=== PATIENT | female | born 1960 | race Caucasian/White ===

== ENCOUNTER 2016-09-26 20:53 | Emergency (ER) | payer SELFPAY ==
[2016-09-26 21:02] VITALS: RESP 18; TEMP 98.1
[2016-09-26] MEDS ORDERED: NORMAL SALINE 10 ML SYRINGE FLUSH IVP PRN (21:04)
[2016-09-26] MEDS ORDERED: Sodium Chloride 0.9% 1,000 ML PRIMARY IV ONE (21:04)
[2016-09-26] MEDS ORDERED: Pantoprazole Inj 40 MG in Normal Saline Flush 10 ML IVP ONE (21:06)
[2016-09-26 21:33] LABS: BASOPHILS # (AUTO) 0.07 10*3/UL; BASOPHILS % (AUTO) 0.8 % (0-1); EOSINOPHILS # (AUTO) 0.22 10*3/UL; EOSINOPHILS % (AUTO) 2.6 % (0-8); HEMATOCRIT 41.5 % (37.0-47.0); HEMOGLOBIN 13.8 g/dL (12.0-16.0); LYMPHOCYTES # (AUTO) 2.88 10*3/uL; MEAN CORPUSCULAR HEMOGLOBIN 29.7 PG (27-31); MEAN CORPUSCULAR HGB CONC 33.3 g/dL (33-37); MEAN PLATELET VOLUME 10.9 FL (7.4-12.2); MONOCYTES # (AUTO) 0.72 10*3/UL (0.3-0.8); MONOCYTES % (AUTO) 8.5 % (5-15); NEUTROPHILS # (AUTO) 4.55 10*3/UL; NEUTROPHILS % (AUTO) 53.9 % (50-80); PLATELET MORPHOLOGY COMMENT NORMAL MORPHOLOGY (NORM); RBC MORPHOLOGY COMMENT NORMAL MORPHOLOGY (NORM); RED BLOOD COUNT 4.64 10^6/uL (4.20-5.40); WBC MORPHOLOGY COMMENT NORMAL MORPHOLOGY (NORM)
[2016-09-26 21:44] LABS: BLOOD UREA NITROGEN 18 mg/dL (7-22); C-REACTIVE PROTEIN 0.6 mg/dL (0.0-0.9); EST GLOMERULAR FILTRATION > 60 (>60 ml/min/1.73m(2)); LIPASE 68 IU/L (23-300); SERUM ALBUMIN 4.4 g/dL (3.5-4.8)
--- NOTE | 2016-09-26 23:27 | DI ---
HISTORY: Abdominal pain. COMPARISON: None. TECHNIQUE: Anon-contrast CT of the abdomen and pelvis was performed. Images were presented in the ax ial, coronal and sagittal plane. FINDINGS: LUNG BASES: Mild scar is seen within the lung bases. LIVER: Normal in size and attenuation with no focal abnormalities. GALLBLADDER AND BILE DUCTS: Gallbladder is mildly dilated without calcified cholelithiasis. The commo n bile duct is not dilated. Incidental note is made of small duodenal diverticulum. SPLEEN: Normal in size and attenuation with no focal abnormalities. PANCREAS: Normal in size and attenuation with no focal abnormalities. ADRENALS: Normal in size and attenuation with no focal abnormalities. : There is excreted contrast within both renal collecting systems without hydronephrosis or mass. T here is excreted contrast within the urinary bladder. This is likely secondary to prior IV contrast s tudy. GI: No evidence of bowel obstruction or focal inflammation. No focal bowel wall thickening. Status post appendectomy. PELVIS: Within normal limits with no mass identified. Status post hysterectomy. BONES: No acute bony abnormality. No suspicious osteolytic or osteoblastic lesion. SOFT TISSUES: Unremarkable. IMPRESSION: 1. There is mild dilation of the gallbladder without calcified cholelithiasis.
--- NOTE | 2016-09-26 23:29 | PDOC ---
Abdomen/Flank HPI - General Chief Complaint: Genitourinary Complaint Stated Complaint: LOWER BACK PAIN GOING TO RIGHT SIDE Date Seen by Provider: 09/26/16 Time Seen by Provider: 23:00 Source: POSITIVE: Patient Exam Limitations: POSITIVE: No limitations Nurse's Notes Reviewed & Considered: Yes - History of Present Illness Initial Comments: The patient is a 56-year-old female who presents to the emergency room with abdominal pain and back pain. She states that she has been having some issues with some pain across her lower back. This evening while lying in bed she states that her pain radiated higher upper back and then is now across her upper abdomen. She thought that maybe she was having problems with an ulcer and took some Tums, ibuprofen and a couple glasses of milk. This seemed to make the pain worse across her upper abdomen. She has associated nausea however has not had any vomiting. She denies any recent change in bowel movements, fevers or chills, urinary symptoms or any other associated symptoms. She has had previous hysterectomy. - Patient Home Medications Home Medications: Home Medications Ibuprofen [Advil] 200 mg PO Q4H PRN 09/26/16 Omeprazole 20 mg PO DAILY #30 cap 09/26/16 - Patient Allergies Allergies/Adverse Reactions: Allergies Allergy/AdvReac Type Severity Reaction Status Date / Time cephalexin monohydrate Allergy Severe rash and Verified 09/26/16 20:56 [From Keflex] swelling hayfever Allergy Mild NOT Uncoded 10/12/15 12:02 APPLICABLE Past Medical History - heen HEENT History: Denies History Cardiovascular History: Denies History Respiratory History: Denies History Gastrointestinal History: Denies History Genitourinary History: Denies History Endocrine History: Denies History Musculoskeletal History: Denies History Prosthesis or Implant: No Neurological History: Denies History Blood Disorders: Denies History Psychiatric History: Denies History History of Sexually Transmitted Diseases: No Female Reproductive History: Denies History Obstetrical History: Denies History Cancer History: Denies History In Past Year Been Physically Harmed or Verbally Threatened: No History of MDRO: No History of Other Communicable Diseases: No Tobacco Use: Current Every Day Smoker Alcohol Use: None Substance Use Type: None Previous Surgical History: Yes Type / Date of Surgery: hyst Anesthesia Reactions: No Malignant Hyperthermia: No Significant Family History: No pertinent family hx Past Medical History Reviewed: Reviewed - No Changes ROS - Limitations ROS Limitations: No Limitations Constitution: REPORTS: Denies Symptoms Cardiovascular: REPORTS: Denies Cardiac Symptoms Respiratory: REPORTS: Denies Resp Symptoms. DENIES: Hurts To Breathe, Shortness Of Breath Neurological: REPORTS: Denies Neuro Symptoms Gastrointestinal: REPORTS: Abdominal Pain, Nausea. DENIES: Vomitting, Diarrhea Musculoskeletal: REPORTS: Denies MS Symptoms Genitourinary: REPORTS: Denies Symptoms Eyes: REPORTS: Denies Symptoms ENT: REPORTS: Denies Symptoms Skin: DENIES: Rash Abdominal/Flank Pain PE - General Appearance General Appearance: POSITIVE: Alert, Cooperative, No Acute Distress - HEENT HEENT: POSITIVE: Head Inspection Nml, Eyes Inspection Nml, Ears Inspection Nml, Nose Inspection Nml, Pharynx Inspect. Nml, PERRL, EOMI - Neck Neck: POSITIVE: Normal Inspection. NEGATIVE: Lymphadenopathy - Respiratory Respiratory: POSITIVE: No Respiratory Distress, Breath Sounds Normal - Cardiovascular Cardiovascular: POSITIVE: Regular Rate and Rhythm, Heart Sounds Normal - Abdomen Abdomen: Soft: (All Quadrants), Normal Bowel Sounds: (All Quadrants), No Guarding: (All Quadrants), No Rebound: (All Quadrants) Additional Abdominal Details: She did have tenderness primarily in the right upper quadrant with some mild tenderness in the epigastric region as well, no guarding or rebound tenderness, no palpable mass. - Back Back: NEGATIVE: CVA Tenderness (R), CVA Tenderness (L) - Skin Skin: POSITIVE: Intact, No Rash - Extremities Extremity: Normal ROM: (All Extremities), Normal Inspection: (All Extremities) - Neurological Neurological: POSITIVE: Other (No focal neurologic deficit) Abdomen Progress - Results Reviewed by me Xrays/CTs/US Reviewed by me: Yes Discussed with Radiologist: Yes Radiology Findings: CT scan of the abdomen and pelvis reveals a gallbladder which is slightly distended with no visible gallstones, no other acute abnormalities per radiologist. Lab Results Reviewed: Yes Lab Results:: Laboratory Results 09/26/16 Range/Units 21:25 WBC 8.46 (4.8-10.8) 10^3/uL RBC 4.64 (4.20-5.40) 10^6/uL Hgb 13.8 (12.0-16.0) g/dL Hct 41.5 (37.0-47.0) % MCV 89.4 (81-99) FL MCH 29.7 (27-31) PG MCHC 33.3 (33-37) g/dL RDW Std Deviation 45.4 (39-50) fL RDW Coeff of Lj 14.1 (11.5-14.5) % Plt Count 219 (140-350) 10*3/uL MPV 10.9 (7.4-12.2) FL Immature Gran % (Auto) 0.2 (0-5) % Neut % (Auto) 53.9 (50-80) % Lymph % (Auto) 34.0 (10-50) % [place] % (Auto) 8.5 (5-15) % Eos % (Auto) 2.6 (0-8) % Baso % (Auto) 0.8 (0-1) % Immature Gran # (Auto) 0.02 10*3/UL Neut # (Auto) 4.55 10*3/UL Lymph # (Auto) 2.88 10*3/uL [place] # (Auto) 0.72 (0.3-0.8) 10*3/UL Eos # (Auto) 0.22 10*3/UL Baso # (Auto) 0.07 10*3/UL WBC Morphology Comment Normal morphology (NORM) Plt Morphology Comment Normal morphology (NORM) RBC Morph Comment Normal morphology (NORM) Sodium 144 (135-145) meq/L Potassium 3.7 L (3.8-5.2) meq/L Chloride 108 (98-112) meq/L Carbon Dioxide 26 (23-33) meq/L Anion Gap 10 (5-20) BUN 18 (7-22) mg/dL Creatinine 0.8 (0.50-1.20) mg/dL Estimated GFR > 60 (>60 ml/min/1.73m(2)) BUN/Creatinine Ratio 22.50 H (6-20) Glucose 89 (78-110) mg/dL Calculated Osmolality 298.0 H (267-292) mOsm/kg Calcium 10.0 (8.7-10.7) mg/dL Total Bilirubin 0.5 (0.3-1.2) mg/dL AST 17 (8-39) IU/L ALT 22 (9-52) IU/L Alkaline Phosphatase 58 (38-126) IU/L C-Reactive Protein 0.6 (0.0-0.9) mg/dL Total Protein 7.2 (6.1-8.0) g/dL Albumin 4.4 (3.5-4.8) g/dL Globulin 2.8 (2.50-4.10) g/dL Albumin/Globulin Ratio 1.50 (1.3-2.0) mg/g Amylase 33 (30-110) U/L Lipase 68 (23-300) IU/L - Patient's Progress MDM / ED Course: By the time the patient arrived in the emergency room her pain had subsided somewhat and was down to about a 6 out of 10. Her pain had been more intense at home. An IV was established and she did receive Protonix 40 mg IV. Her pain continued to lessen and she remained comfortable for the most part with some continued mild right upper quadrant pain. Her lab work is all essentially unremarkable. Her CT scan does reveal a mildly dilated gallbladder with no visible stones by CT. At this point her symptoms are most consistent with biliary colic however cannot exclude gastritis or ulcer as a potential etiology as well. At this point the patient is considered stable for continued workup as an outpatient. She was given an order for a gallbladder ultrasound for further evaluation and advised to follow-up with general surgery once she has this completed. She is advised to remain on a low-fat diet and was started on omeprazole 20 mg daily. She is to return to the emergency room she develops increased pain, vomiting or dehydration, fever, any worsening or change in symptoms. - Consult Counseled: POSITIVE: Patient, Family, RE: Lab Results, RE: Radiology Results, RE : DX, RE: Need for F/U Patient Care Time - Estimated PCT Patient Care Time (In Minutes): 30 Vital Signs - Recent Vital Signs Vital Signs: Vital Signs (Last 8 hours) Temp Pulse Resp BP Pulse Ox 09/26/16 20:57 98.1 F 83 18 148/75 94 - VS Reviewed Vital Signs Reviewed: Yes Discharge Clinical Impression: Abdominal pain Discharge Disposition: Discharged to Home Condition: Stable Prescriptions / Orders: Omeprazole 20 mg PO DAILY #30 cap Patient Instructions Given at Discharge: Acute Abdominal Pain (ED) Additional Instructions: The CAT scan did show a gallbladder that was slightly enlarged. The pain you are experiencing could be consistent with a gallbladder attack. We will schedule an ultrasound of the gallbladder as an outpatient to help further evaluate this. In addition I would recommend a low-fat diet. It is also possible that this could represent some form of ulcer. For this she will be prescribed omeprazole 20 mg daily. You've also been sent home with a couple doses of [place] 5/325 which is a pain medicine that you can take one every 4-6 hours as needed for pain. You've also been given Zofran 8 mg which she can use every 6 hours as needed for nausea. Return to the emergency room if increased pain, vomiting or dehydration, fever, any worsening or change in symptoms. Recommend follow-up with the surgery clinic after your ultrasound. Follow Up With: NONE,NONE [Primary Care Provider] -
[2016-09-26] MEDS ORDERED: Ondansetron ODT Tab 8 MG TAB PO SCH (23:45)
[2016-09-26] MEDS ORDERED: HYDROcodone-APAP 5 MG -325 MG TABLET PO SCH (23:45)
== END 2016-09-26 23:54 | disposition home or self-care (01) ==
LOC: ER 20:53
DX: R10.11 Right upper quadrant pain (principal); M54.5 Low back pain
CPT/HCPCS: 74176; 80053; 82150; 83690; 85025; 86140; 96374; 99283 ×2; Q0162; J3490; J7030

== ENCOUNTER → 2016-10-01 | Outpatient (CLI) | payer SELFPAY ==
--- NOTE | 2016-10-01 13:54 | DI ---
US ABDOMEN LIMITED,10/01/2016 11:07 AM: Clinical History: Right-sided pain. Previous Exam: July 01, 2006 Findings: Multiple grayscale and color Doppler sonographic images are obtained through the abdomen, and demonst rate mild diffuse fatty infiltration of the liver. Visualized portions of the pancreas are normal. The right kidney is normal measuring 10.9 cm in length without hydronephrosis nor nephrolithiasis. The common bile duct measures 4 mm. The gallbladder wall measures 2 mm. The aorta is unremarkable. Impression: Normal right upper quadrant ultrasound.
== END ==
LOC: US 10:54
PROVIDERS: ATTEND Family Medicine
DX: R10.84 Generalized abdominal pain (principal); K76.0 Fatty (change of) liver, not elsewhere classified
CPT/HCPCS: 76705